=== PATIENT | male | born 1975 | race Caucasian/White ===

== ENCOUNTER 2018-03-12 14:35 | Emergency (ER) | payer BC ==
[2018-03-12] MEDS: ACETAMINOPHEN 500 MG TAB PO (16:18)
[2018-03-12] MEDS: CEPHALEXIN 500 MG CAP PO (16:34)
[2018-03-12] MEDS: LORAZEPAM 1 MG TAB PO (16:34)
[2018-03-12] MEDS: TRIMETHOPRIM/SULFAMETHOX (DS) TAB PO (16:51)
== END 2018-03-12 17:15 | disposition home or self-care (01) ==
LOC: FTE 14:35
DX: L02.512 Cutaneous abscess of left hand (principal); F17.210 Nicotine dependence, cigarettes, uncomplicated
CPT/HCPCS: 26010; 73140; 99283-25

== ENCOUNTER 2018-03-14 15:56 | Emergency (ER) | payer BC | END 2018-03-14 19:14 | disposition home or self-care (01) | LOC: FTE 15:56 | DX: M54.5 Low back pain (principal); F17.210 Nicotine dependence, cigarettes, uncomplicated | CPT/HCPCS: 99283; Z7502 ==

== ENCOUNTER 2018-07-03 22:37 | Emergency (ER) | payer BC ==
[2018-07-04] MEDS: LORAZEPAM 1 MG TAB PO (01:17)
== END 2018-07-04 01:37 | disposition home or self-care (01) ==
LOC: FTE 22:37
DX: F41.9 Anxiety disorder, unspecified (principal); M25.562 Pain in left knee; F17.210 Nicotine dependence, cigarettes, uncomplicated
CPT/HCPCS: 99283; Z7502